=== PATIENT | female | born 2000 | race Caucasian/White ===

== ENCOUNTER → 2019-01-31 | Outpatient (CLI) | payer OTHER ==
--- NOTE | 2019-01-31 13:39 | RADIOLOGY IMAGING REPORT ---
FACILITY: [facility] - [place], [place] PATIENT NAME: Monica De León : 2000 MR: [id number] V: [id number] EXAM DATE: ORDERING PHYSICIAN: JOSH ECHEVERRIA TECHNOLOGIST: Location: [facility] Patient: Monica De León : 2000 Visit/Account:[id number] Date of Sevice: 01/31/2019 KIDNEYS EXAMINATION: Renal ultrasound. History: Recurring UTIs COMPARISON STUDIES: FINDINGS: Kidneys: Right kidney- 11.8 x 3.4 x 4.4 cm Left kidney- 11.5 x 4.5 x 3.8 cm Uniform and symmetric blood flow in each kidney by Doppler ultrasound. Hydronephrosis: none Resistive index on the right 0.64 and on the left 0.57 Bladder: Prevoid volume 525 mL. Post void residual 23 mL. Bilateral ureteral jets are present. Incidental note of a 2.5 cm right ovarian cyst Abdominal aorta and IVC: Aorta and IVC are patent by Doppler ultrasound. IMPRESSION: Unremarkable renal ultrasound other than incidental note of a 2.5 cm incidental right ovarian cyst Report Dictated By: Lourdes Kenny MD at 01/31/2019 1:33 PM Report E-Signed By: Lourdes Kenny MD at 01/31/2019 1:35 PM WSN:[id number]
== END ==
LOC: US 11:08
PROVIDERS: ATTEND Urology
DX: N39.0 Urinary tract infection, site not specified (principal)
CPT/HCPCS: 76705

== ENCOUNTER → 2019-04-10 | Outpatient (CLI) | payer OTHER ==
--- NOTE | 2019-04-10 09:48 | RADIOLOGY IMAGING REPORT ---
FACILITY: [facility] PATIENT NAME: Monica De León : 2000 MR: [id number] V: [id number] EXAM DATE: ORDERING PHYSICIAN: VICKIE PHELAN TECHNOLOGIST: Location: [facility] [place] Patient: Monica De León : 2000 Visit/Account:[id number] Date of Sevice: 04/10/2019 Study: CT scan of the brain without intravenous contrast. Indication: Fell off horse one day ago. Now with headache and neck pain Comparison study:None Technique: Multiple axial images were obtained through the brain without the use of intravenous contr ast. One of the following dose optimization techniques was utilized in the performance of this exam: Autom ated exposure control; adjustment of the mA and/or kV according to the patient's size; or use of an i terative reconstruction technique. Specific details can be referenced in the facility's radiology C T exam operational policy. The examination demonstrates no evidence of acute intracranial hemorrhage. There is no evidence of ex tra-axial collection or hydrocephalus. There is no abnormal density identified within the brain parenchyma. There is no evidence of disruption of the peripheral acosta-white junction. The bony structures are unremarkable. IMPRESSION:Unremarkable CT scan of the brain without contrast. Report Dictated By: Kirill Fowler at 04/10/2019 9:39 AM Report E-Signed By: Kirill Fowler at 04/10/2019 9:41 AM WSN:[id number]
== END ==
LOC: CT 09:06
PROVIDERS: ATTEND Nurse Practitioner Family
DX: S09.90XA Unspecified injury of head, initial encounter (principal)
CPT/HCPCS: 70450